=== PATIENT | male | born 1960 | race Caucasian/White ===

== ENCOUNTER 2021-02-16 10:06 | Emergency (ER) | payer BC, OTHER ==
[~2021-02-16] VITALS: Ht 177.8 cm; Wt 85.0 kg
[2021-02-16 10:14] VITALS: BP 168/84
[2021-02-16] MEDS ORDERED: KETOROLAC 30 MG/1 ML ONE (10:39)
--- NOTE | 2021-02-16 10:59 | NUR ---
pt medicated per mar
[2021-02-16] MEDS ORDERED: KETOROLAC 30 MG/1 ML IM ONE (11:00)
== END 2021-02-16 12:02 | disposition home or self-care (01) ==
LOC: ED 12:00
DX: M25.561 Pain in right knee (principal)
CPT/HCPCS: 29505; 73564; 96372; 99283; J1885